=== PATIENT | male | born 1995 | race Two or more races ===

== ENCOUNTER 2021-01-11 22:05 | Emergency (ER) | payer OTHER ==
[~2021-01-11] VITALS: Ht 193 cm; Wt 142.0 kg
--- NOTE | 2021-01-11 22:54 | NUR ---
PT C/O OF RIGHT KNEE PAIN PT STATES HE WAS PLAYING BASEBALL AND AT BAT HE TWISTED WRONG AND HEARD HIS KNEE POP AND FELL TO THE GROUND. PT REPORTS HIS LEG WAS DANGLING FROM HIS KNEE. PT STATES HE POPPED IN BACK INTO PLACE AND THEN IT HAS POPPED OUT AGIN SINCE. CMS INTACT DISTAL TO INJURY. HAS TROUBLE TURNING RIGHT FOOT INWARD. PT HAS ABRASION ON RIGHT KNEE. ATTACHED TO MONITORS. VSS. NADN. PT APPEARS IN NO PAIN. BED IN LOW POSITION, RAILS ENGAGED, CALL LIGHT ON LAP. AT BEDSIDE. [facility]
[2021-01-11] MEDS ORDERED: ONDANSETRON ODT 4 MG ONE (23:54)
[2021-01-11] MEDS ORDERED: HYDROmorphone 1 MG/ML, 1ML INJ ONE (23:54)
[2021-01-12] MEDS ORDERED: HYDROmorphone 1 MG/ML, 1ML INJ IM ONE
[2021-01-12] MEDS ORDERED: ONDANSETRON ODT 4 MG PO ONE
--- NOTE | 2021-01-12 01:18 | NUR ---
Patient is resting comfortably in bed. KNEE IMMOBILIZER APPLIED WIH CRUTCHES AT BEDSIDE. Bed in lowest, rails engaged, call light on lap. Vital Signs within normal limits. [facility].
--- NOTE | 2021-01-12 01:51 | NUR ---
CARE ASSUMED FOR DC. CRUTCH TEACHING DONE. PT HAS UNDERSTANDING OF INSTRUCTIONS. AMBULATED TO DC DESK ON CRUTCHES WITHOUT DIFFICULTY ACCOMPANIED BY FAMILY MEMBER.
[2021-01-12 01:52] VITALS: BP 171/102
== END 2021-01-12 01:54 | disposition home or self-care (01) ==
LOC: ED 23:28
DX: S83.411A Sprain of medial collateral ligament of right knee, initial encounter (principal); X50.0XXA Overexertion from strenuous movement or load, initial encounter; Y93.89 Activity, other specified; Y92.328 Other athletic field as the place of occurrence of the external cause; Y99.8 Other external cause status
CPT/HCPCS: 29505; 73564; 96372; 99285; J1170; Q0162